=== PATIENT | male | born 1970 | race Caucasian/White ===

== ENCOUNTER → 2021-09-08 | Outpatient (CLI) | payer OTHER | END | disposition home or self-care (01) | LOC: RAD 07:59 | PROVIDERS: ATTEND General Practice | DX: R07.9 Chest pain, unspecified (principal) ==

== ENCOUNTER 2023-10-11 07:09 | Outpatient (CLI) | payer OTHER | END 2023-10-11 08:20 | disposition home or self-care (01) | LOC: RAD 07:09 | PROVIDERS: ATTEND General Practice | DX: I70.0 Atherosclerosis of aorta (principal) ==